=== PATIENT | male | born 1970 | race Caucasian/White ===

== ENCOUNTER 2016-11-04 18:23 | Emergency (ER) | payer MEDICAID ==
[~2016-11-04] VITALS: Ht 170.2 cm; Wt 65.8 kg
[2016-11-04 18:41] VITALS: BP 116/72
[2016-11-04] MEDS ORDERED: IBUPROFEN 600 MG TAB PO ONE (21:00)
== END 2016-11-04 21:10 | disposition home or self-care (01) ==
LOC: EDBD 18:23 → ER 18:27
DX: S00.83XA Contusion of other part of head, initial encounter (principal); F12.10 Cannabis abuse, uncomplicated; F17.210 Nicotine dependence, cigarettes, uncomplicated; Y09 Assault by unspecified means; Y93.89 Activity, other specified; Y92.89 Other specified places as the place of occurrence of the external cause; Y99.8 Other external cause status

== ENCOUNTER 2021-08-08 20:27 | Emergency (ER) | payer MEDICAID, OTHER ==
[~2021-08-08] VITALS: Ht 172.7 cm; Wt 77.1 kg
[2021-08-08] MEDS ORDERED: EPINEPHrine HCL 1 MG/10 ML SYRG IV ONE ×3 (20:32→21:30)
[2021-08-08] MEDS ORDERED: ATROPINE SULF 1 MG/10ml SYR IV ONE (20:32)
[2021-08-08] MEDS ORDERED: VASOPRESSIN 20 UNIT/ML ONE (20:51)
[2021-08-08] MEDS ORDERED: TRANEXAMIC ACID 1,000 MG in SODIUM CHL 0.9% 100 ML IV ONE ×4 (21:00)
[2021-08-08] MEDS ORDERED: EPINEPHrine HCL 1 MG/1 ML AMP ONE (21:14)
[2021-08-08] MEDS ORDERED: EPINEPHrine HCL 250 ML IV SCH ×2 (21:15)
[2021-08-08] MEDS ORDERED: ROCURONIUM 10MG/ML 10ML VIAL IV ONE ×3 (21:26→21:30)
[2021-08-08 21:30] VITALS: BP 69/41
== END 2021-08-08 21:47 ==
LOC: EDBD 20:27 → EDUNIT# 20:31 → ER 20:31
DX: I46.9 Cardiac arrest, cause unspecified (principal); R57.8 Other shock; I31.4 Cardiac tamponade; J93.9 Pneumothorax, unspecified; R41.82 Altered mental status, unspecified
CPT/HCPCS: 31500; 36556; 86920; 92950; 96365; 96368; 96375; 99291; J0171; P9016